=== PATIENT | male | born 1980 | race Caucasian/White ===

== ENCOUNTER 2023-03-29 10:54 | Emergency (ER) | payer OTHER ==
[~2023-03-29] VITALS: Ht 175.3 cm; Wt 104.3 kg
[2023-03-29] MEDS ORDERED: METOCLOPRAMIDE HCL 10 MG/2 ML VIAL ONE (11:24)
[2023-03-29] MEDS ORDERED: MORPHINE SULFATE INJ 2 MG/ML DISP.SYRIN ONE (11:24)
[2023-03-29] MEDS ORDERED: FAMOTIDINE/PF INJ 20 MG/2 ML VIAL IV ONE ×2 (11:24→11:30)
[2023-03-29] MEDS ORDERED: METOCLOPRAMIDE HCL 10 MG/2 ML VIAL IV ONE (11:30)
[2023-03-29] MEDS ORDERED: IV NS 0.9% 1,000 ML BAG IV ONE (11:30)
[2023-03-29] MEDS ORDERED: MORPHINE SULFATE INJ 2 MG/ML DISP.SYRIN IV ONE (11:30)
[2023-03-29 11:38] LABS: BASOPHILS # (AUTO) 0.1 K/uL (0.0-0.2); BASOPHILS % (AUTO) 0.5 % (0.0-2.0); EOSINOPHILS # (AUTO) 0.1 K/uL (0.0-0.7); EOSINOPHILS % (AUTO) 0.6 % (0.0-6.0); HEMATOCRIT 42 % (39-51); HEMOGLOBIN 13.7 g/dL (13.5-17.5); LYMPHOCYTES # (AUTO) 1.5 K/uL (0.8-4.8); LYMPHOCYTES % (AUTO) 11.7 % (20.0-44.0); MEAN CORPUSCULAR HEMOGLOBIN 25 PG (26.0-33.0); MEAN CORPUSCULAR HGB CONC 32 g/dl (31.0-36.0); MEAN CORPUSCULAR VOLUME 77 fL (80-96); MONOCYTES # (AUTO) 0.7 K/uL (0.1-1.30); MONOCYTES % (AUTO) 5.6 % (2.0-12.0); NEUTROPHILS # (AUTO) 10.5 K/uL (1.8-8.9); NEUTROPHILS % (AUTO) 81.6 % (43.0-81.0); PLATELET COUNT (AUTO) 348 K/uL (150-450); RED BLOOD CELL COUNT(AUTO) 5.51 MIL/uL (4.5-6.0); RED CELL DISTRIBUTION WIDTH 19.2 % (11.5-15.0); WHITE BLOOD COUNT (AUTO) 12.8 K/uL (4.3-11.0)
[2023-03-29 11:39] LABS: APPEARANCE,URINE CLEAR (CLEAR); BILIRUBIN,URINE NEGATIVE (NEGATIVE); BLOOD, URINE NEGATIVE Ery/uL (NEGATIVE); COLOR,URINE YELLOW (YELLOW); KETONES,URINE TRACE mg/dL (NEGATIVE); LEUKOCYTE ESTERASE ,URINE NEGATIVE (NEGATIVE); NITRITE, URINE NEGATIVE (NEGATIVE); PH,URINE 7.5 (5.0-8.0); PROTEIN,URINE TRACE mg/dl (NEGATIVE); UGLUCOSE NEGATIVE (NEGATIVE); UROBILINOGEN,URINE 0.2 EU/dL (0.2)
[2023-03-29 11:57] LABS: CALCIUM, SERUM 10.1 mg/dL (8.5-10.1); CARBON DIOXIDE 22 mmol/L (21-32); CHLORIDE 102 mmol/L (98-107); GLUCOSE 128 mg/dL (74-106); POTASSIUM 3.9 mmol/L (3.5-5.1); SODIUM SERUM 136 mmol/L (136-145); UREA NITROGEN, BLOOD 20 mg/dL (7-18)
[2023-03-29 12:03] LABS: ALANINE AMINOTRANSFERASE 70 U/L (12-78); ALBUMIN 4.1 g/dL (3.4-5.0); ALKALINE PHOSPHATASE 68 U/L (46-116); ASPARTATE AMINOTRANSFERASE 36 U/L (15-37); BILIRUBIN,DIRECT 0.1 mg/dL (0.0-0.2); BILIRUBIN,TOTAL 0.6 mg/dL (0.2-1.0); LIPASE 86 U/L (73-393); TOTAL PROTEIN, SERUM 8.7 g/dL (6.4-8.2)
[2023-03-29 12:44] VITALS: BP 135/85; TEMP 98.6; O2SAT 100
== END 2023-03-29 12:41 | disposition home or self-care (01) ==
LOC: ER 11:00
DX: R10.84 Generalized abdominal pain (principal)
CPT/HCPCS: 99285; 74176; 96374; 71045; 96375; 96361; 93005; 85025; 80048; 87086; 83690; 80076; 81003; 36415; 84484; J3490; J2765; J7030; J2270